=== PATIENT | male | born 1955 | race African-American/Black ===

== ENCOUNTER 2022-08-08 01:22 | Emergency (ER) | payer OTHER ==
[~2022-08-08] VITALS: Ht 167.6 cm; Wt 75.0 kg
[2022-08-08 01:36] VITALS: BP 148/88
[2022-08-08] MEDS ORDERED: TAMS-11 MT (02:12)
== END 2022-08-08 02:22 | disposition home or self-care (01) ==
LOC: ER 01:22
DX: R33.9 Retention of urine, unspecified (principal); N40.0 Benign prostatic hyperplasia without lower urinary tract symptoms; Z91.14 Patient's other noncompliance with medication regimen
CPT/HCPCS: 99283

== ENCOUNTER 2022-08-08 17:42 | Emergency (ER) | payer OTHER ==
[~2022-08-08] VITALS: Ht 175.3 cm; Wt 78.0 kg
[~2022-08-08 17:42] MED LIST: TAMS-11 MT
[2022-08-08 18:13] VITALS: BP 118/78
== END 2022-08-08 20:10 | disposition home or self-care (01) ==
LOC: ER 18:06
DX: Z46.6 Encounter for fitting and adjustment of urinary device (principal); N40.0 Benign prostatic hyperplasia without lower urinary tract symptoms
CPT/HCPCS: 99281

== ENCOUNTER 2022-12-06 22:25 | Emergency (ER) | payer OTHER ==
[~2022-12-06] VITALS: Ht 167.6 cm; Wt 75.0 kg
[2022-12-06 22:31] VITALS: BP 117/71
[2022-12-07] MEDS ORDERED: TAMS-11 MT (00:32)
[2022-12-07 00:33] LABS: CLARITY URINE CLEAR (CLEAR); COLOR URINE YELLOW (YELLOW); KETONES URINE NEGATIVE (NEGATIVE); LEUKOCYTE ESTERASE URINE NEGATIVE (NEGATIVE); NITRITE URINE NEGATIVE (NEGATIVE); OCCULT BLOOD URINE 1+ (NEGATIVE); PROTEIN URINE NEGATIVE (NEGATIVE); SPECIFIC GRAVITY URINE 1.015 (1.005-1.030); UROBILINOGEN URINE 0.2 E.U./dL (0.2-1.0)
== END 2022-12-07 00:49 | disposition home or self-care (01) ==
LOC: ER 22:25
DX: R33.9 Retention of urine, unspecified (principal); D29.1 Benign neoplasm of prostate
CPT/HCPCS: 81003; 99283